=== PATIENT | female | born 1955 | race Two or more races ===

== ENCOUNTER 2016-06-18 13:21 | Observation (INO) | payer OTHER ==
[2016-06-18] MEDS ORDERED: SODIUM CHLORIDE 0.9% FLUSH 10 ML SOL IV PRN (13:36)
[2016-06-18] MEDS ORDERED: ASPIRIN 81 MG CHEWABLE CTB PO STA (13:36)
[2016-06-18] MEDS ORDERED: ASPIRIN 81 MG CHEWABLE CTB ONE (13:45)
[2016-06-18 13:55] LABS: BASOPHILS % (AUTO) 1 % (0-3); EOSINOPHILS % (AUTO) 1 % (0-9); HEMATOCRIT 35 % (35-47); MEAN CORPUSCULAR HGB CONC 34.9 gm/dl (32.0-36.0); MONOCYTES % (AUTO) 3.3 % (0-12); NEUTROPHILS % (AUTO) 70.4 % (37-80)
[2016-06-18 14:10] LABS: ALBUMIN 3.6 gm/dl (3.4-5.0); ALT 20 IU/L (14-63); CALCIUM 8.6 mg/dl (8.5-10.1); GLOM FILT RATE 72 mL/min (>60); MAGNESIUM 1.6 mg/dl (1.8-2.4); PHOSPHORUS 1.6 mg/dl (2.6-4.7); POTASSIUM 3.3 mMol/L (3.5-5.1); SODIUM 136 mMol/L (136-145)
[2016-06-18 15:36] LABS: APPEARANCE,URINE Clear; BILIRUBIN,URINE NEGATIVE (NEGATIVE); COLOR,URINE Yellow; GLUCOSE, URINE (UA) NEGATIVE (NEGATIVE); KETONES,URINE NEGATIVE (NEGATIVE); LEUKOCYTE ESTERASE ,URINE NEGATIVE (NEGATIVE); NITRATE,URINE NEGATIVE (NEGATIVE); OCCULT BLOOD,URINE NEGATIVE (NEG-TRACE); PH,URINE 7.5; UROBILINOGEN,URINE 0.2 (0.2-1.0 EU)
[2016-06-18 15:47] LABS: RBC,URINE 0-1 (0-3AV/HPF); WBC,URINE 0-2 (0-5AV/HPF)
[2016-06-18] MEDS ORDERED: ALBUTEROL HFA 60 PUFF/INHALER INH PRN (17:21)
[2016-06-18] MEDS: MAGNESIUM OXIDE 400 MG TAB PO SCH ×2 (18:42→20:35)
[2016-06-18] MEDS ORDERED: SODIUM CHLORIDE 0.9% IV SCH (19:00)
[2016-06-18] MEDS ORDERED: POTASSIUM PHOS IV SCH (19:00)
[2016-06-18] MEDS ORDERED: SODIUM CHLORIDE 0.9% 500 ML 50 ML IV ONE (19:10)
[2016-06-18] MEDS ORDERED: SODIUM CHLORIDE 0.9% 500 ML 50 ML IV PRN (19:16)
[2016-06-18] MEDS: ENOXAPARIN 30 MG SOL SC SCH (20:34)
[2016-06-18] MEDS: GABAPENTIN 300 MG CAP PO SCH (20:35)
[2016-06-18] MEDS: BUDESONIDE IH SCH (20:38)
[2016-06-18] MEDS: FORMOTEROL IH SCH (20:38)
[2016-06-18] MEDS ORDERED: OMEPRAZOLE 20 MG CAPSULE PO SCH (21:00)
[2016-06-19] MEDS: MAGNESIUM OXIDE 400 MG TAB PO SCH ×2 (01:26→05:17)
[2016-06-19] MEDS: MORPHINE SULFATE 10 MG/ML SOL IV PRN ×2 (02:09→05:17)
[2016-06-19 02:48] VITALS: RESP 16
[2016-06-19 07:23] LABS: MAGNESIUM 2.2 mg/dl (1.8-2.4); POTASSIUM 4.5 mMol/L (3.5-5.1)
[2016-06-19 08:15] VITALS: BP 126/76; PULSE 66; TEMP 98; O2SAT 96
[2016-06-19] MEDS ORDERED: PANTOPRAZOLE SODIUM 40 MG ECT PO SCH (09:00)
[2016-06-19] MEDS ORDERED: MONTELUKAST SODIUM 10 MG TAB PO SCH (09:00)
[2016-06-19] MEDS ORDERED: CHOLECALCIFEROL 1,000 IU TAB PO SCH (09:00)
[2016-06-19] MEDS ORDERED: FLUOXETINE HYDROCHLORIDE 10 MG CAP PO SCH (09:00)
[2016-06-19] MEDS: GABAPENTIN 300 MG CAP PO SCH (09:13)
[2016-06-19] MEDS: ENOXAPARIN 30 MG SOL SC SCH (09:14)
[2016-06-19] MEDS: FORMOTEROL IH SCH (09:14)
[2016-06-19] MEDS: BUDESONIDE IH SCH (09:14)
[2016-06-19] MEDS ORDERED: INFLUENZA VIRUS VACCINE 0.5 ML SUS IM ONE (10:25)
[2016-06-19] MEDS ORDERED: PNEUMOCOCCAL VACCINE 0.5 ML SOL IM ONE (10:25)
[2016-06-19] MEDS ORDERED: BUDESONIDE/FORMOTEROL 160/4.5 AER INH SCH (21:00)
== END 2016-06-19 12:40 | disposition home or self-care (01) ==
LOC: ED 13:21 → UNDOADMOB 16:47 → ACUTE CARE 16:47
PROVIDERS: ADMIT Family Medicine; ATTEND Family Medicine
DX: E83.39 Other disorders of phosphorus metabolism (principal); E83.42 Hypomagnesemia; R25.2 Cramp and spasm
CPT/HCPCS: 36415 ×3; 71010; 80053; 81001; 82550; 83735 ×2; 83880; 84100 ×2; 84132; 84484; 85025; 85610; 85730; 90686; 90732; 93005; 93012 ×2; 99285 ×2; G0008; J1650 ×3; J2270 ×2; 99218

== ENCOUNTER 2016-10-14 16:41 | Emergency (ER) | payer OTHER ==
[2016-10-14 16:59] VITALS: TEMP 97.4
[2016-10-14] MEDS ORDERED: LACTATED RINGERS 1,000 ML IV ONE (17:10)
[2016-10-14] MEDS ORDERED: SODIUM CHLORIDE 0.9% FLUSH 10 ML SOL IV PRN (17:20)
[2016-10-14 17:34] LABS: CALCIUM 8.8 mg/dl (8.5-10.1)
[2016-10-14 17:36] LABS: BASOPHILS % (AUTO) 1 % (0-3); EOSINOPHILS % (AUTO) 2 % (0-9); HEMATOCRIT 36 % (35-47); MEAN CORPUSCULAR HGB CONC 35.3 gm/dl (32.0-36.0); MEAN CORPUSCULAR VOLUME 92 fL (81-99); MONOCYTES % (AUTO) 6.2 % (0-12); NEUTROPHILS % (AUTO) 63.6 % (37-80)
[2016-10-14 17:39] LABS: POTASSIUM 4.1 mMol/L (3.5-5.1)
[2016-10-14 17:55] VITALS: RESP 16; O2SAT 99
[2016-10-14] MEDS ORDERED: ACETAMINOPHEN 325 MG PO ONE (18:38)
[2016-10-14] MEDS ORDERED: ACETAMINOPHEN 325 MG ONE (18:39)
[2016-10-14 18:52] VITALS: BP 129/57; PULSE 54
== END 2016-10-14 19:18 | disposition home or self-care (01) | DRG 552 ==
LOC: ED 16:41
DX: M54.6 Pain in thoracic spine (principal); M54.5 Low back pain; W20.8XXA Other cause of strike by thrown, projected or falling object, initial encounter; Y92.59 Other trade areas as the place of occurrence of the external cause; Y99.0 Civilian activity done for income or pay
CPT/HCPCS: 36415; 70450; 71020; 72070; 72120; 80048; 85025; 85610; 85730; 96365; 99284; 99285

== ENCOUNTER 2016-12-31 10:31 | Emergency (ER) | payer OTHER ==
[2016-12-31 11:29] VITALS: RESP 20
[2016-12-31 12:11] VITALS: BP 112/75; PULSE 66; TEMP 98.1; O2SAT 99
== END 2016-12-31 12:16 | disposition home or self-care (01) ==
LOC: ED 10:31
DX: S63.502A Unspecified sprain of left wrist, initial encounter (principal); S63.501A Unspecified sprain of right wrist, initial encounter; W19.XXXA Unspecified fall, initial encounter
CPT/HCPCS: 36415; 73110; 99283